=== PATIENT | female | born 1995 | race Caucasian/White ===

== ENCOUNTER 2019-03-05 01:19 | Emergency (ER) | payer BC, MEDICAID ==
[~2019-03-05] VITALS: Ht 165.1 cm; Wt 101.6 kg
[2019-03-05 01:23] VITALS: Ht 165.1 cm; Wt 101.6 kg
[2019-03-05 02:51] VITALS: BP 111/62
== END 2019-03-05 02:51 | disposition home or self-care (01) ==
LOC: ED 01:19
DX: S39.011A Strain of muscle, fascia and tendon of abdomen, initial encounter (principal); M25.551 Pain in right hip; F31.9 Bipolar disorder, unspecified; I10 Essential (primary) hypertension; X58.XXXA Exposure to other specified factors, initial encounter; Y93.89 Activity, other specified; Y92.89 Other specified places as the place of occurrence of the external cause; Y99.8 Other external cause status

== ENCOUNTER 2019-03-06 11:05 | Emergency (ER) | payer BC, MEDICAID ==
[~2019-03-06] VITALS: Ht 165.1 cm; Wt 99.3 kg
[2019-03-06 11:10] VITALS: Ht 165.1 cm; Wt 99.3 kg
[2019-03-06 11:31] LABS: BASOPHIL % 1.3 % (0-2); PLATELET COUNT 269 x10^3mcL (130-400)
[2019-03-06 11:32] LABS: RED CELL DISTRIBUTION WIDTH 15.6 % (11.5-14.5)
[2019-03-06 11:43] LABS: CALCIUM 9.7 mg/dL (8.5-10.1); CARBON DIOXIDE 26.4 mmol/L (21-32); CHLORIDE SERUM 105 mmol/L (98-107); CREATININE SERUM 0.8 mg/dL (0.6-1.0); GFR1 > 60 mL/min; GLUCOSE SERUM 88 mg/dL (74-106); POTASSIUM SERUM 3.3 mmol/L (3.5-5.1); SODIUM SERUM 140 mmol/L (136-145)
[2019-03-06 11:48] LABS: ALBUMIN 3.5 g/dL (3.4-5.0); ALKALINE PHOSPHATASE 86 U/L (46-116); ALT/SGPT 56 U/L (14-59); AST/SGOT 18 U/L (15-37); BILIRUBIN TOTAL 0.52 mg/dL (0.20-1.00); TOTAL PROTEIN, SERUM 7.2 g/dL (6.4-8.2)
[2019-03-06 14:23] LABS: microscopic required? YES; urine erythrocyte NEGATIVE (NEGATIVE)
[2019-03-06 14:49] LABS: AMPHETAMINE QUAL UR POSITIVE (See below)
[2019-03-06 18:55] VITALS: BP 138/75
== END 2019-03-06 18:56 | disposition short-term general hospital (02) ==
LOC: ED 11:05
PROVIDERS: Emergency Medicine
DX: R46.89 Other symptoms and signs involving appearance and behavior (principal); I10 Essential (primary) hypertension
CPT/HCPCS: 36415; G0480